=== PATIENT | female | born 1955 | race Two or more races ===

== ENCOUNTER 2022-10-18 07:29 | Emergency (ER) | payer MEDICARE, OTHER ==
[~2022-10-18] VITALS: Ht 160 cm; Wt 50.8 kg
--- NOTE | 2022-10-18 07:47 | NUR ---
TO ER BED 4, BIB DAUGHTER FOR WORSENING SHORTNESS OF BREATH SINCE YESTERDAY, AAOX3, BREATHING EVEN AND NON LABORED, CONNECTED TO MONITOR, AWAITING MD ORDERS
[2022-10-18] MEDS ORDERED: ACETAMINOPHEN ES 500 MG TABLET ONE (08:20)
[2022-10-18 08:22] LABS: BASOPHILS % (AUTO) 0.4 % (0.0-2.0); EOSINOPHILS % (AUTO) 0.5 % (0.0-6.0); LYMPHOCYTES % (AUTO) 60.9 % (20.0-44.0); MEAN CORPUSCULAR HGB CONC 33 g/dl (31.0-36.0); MEAN CORPUSCULAR VOLUME 113 fL (82-100); MONOCYTES # (AUTO) 0.2 K/uL (0.1-1.30); MONOCYTES % (AUTO) 12.6 % (2.0-12.0); NEUTROPHILS # (AUTO) 0.4 K/uL (1.8-8.9); NEUTROPHILS % (AUTO) 25.6 % (43.0-81.0)
[2022-10-18] MEDS ORDERED: IV NS 0.9% 1,000 ML BAG IV ONE (08:30)
[2022-10-18] MEDS ORDERED: ACETAMINOPHEN ES 500 MG TABLET PO ONE (08:30)
[2022-10-18 08:49] LABS: CALCIUM, SERUM 9.1 mg/dL (8.5-10.1); CARBON DIOXIDE 22 mmol/L (21-32); CHLORIDE 106 mmol/L (98-107); CREATININE 0.9 mg/dL (0.6-1.3); GLUCOSE 109 mg/dL (74-106); POTASSIUM 3.7 mmol/L (3.5-5.1); SODIUM SERUM 139 mmol/L (136-145); UREA NITROGEN, BLOOD 15 mg/dL (7-18)
[2022-10-18 09:08] LABS: HEMATOCRIT 13 % (33-45); HEMOGLOBIN 4.3 g/dL (11.5-14.8); PLATELET COUNT (AUTO) 8 K/uL (150-450); RED BLOOD CELL COUNT(AUTO) 1.13 MIL/uL (4.0-5.2); WHITE BLOOD COUNT (AUTO) 1.7 K/uL (4.3-11.0)
--- NOTE | 2022-10-18 09:47 | NUR ---
ROUND BONER AT BEDSIDE FOR BLOOD DRAW
--- NOTE | 2022-10-18 09:47 | NUR ---
COVID AND FLU SWABS DONE AND SENT TO LAB
[2022-10-18] MEDS ORDERED: LIDOCAINE VISCOUS 2% UD 15 ML UDC ONE (10:46)
[2022-10-18] MEDS ORDERED: LIDOCAINE VISCOUS 2% UD 15 ML UDC PO ONE (11:00)
[2022-10-18] MEDS ORDERED: LEVO25TA9 PO (11:03)
--- NOTE | 2022-10-18 11:06 | NUR ---
PATIENT REFUSED TO SIGN BLOOD TRANSFUSION CONSENT DESPITE THE RISKS OF HAVING LOW HGB OF 4.7, DR PROCTOR AWARE
--- NOTE | 2022-10-18 11:08 | NUR ---
DR PROCTOR AT BEDSIDE TALKING TO THE PATIENT AND FAMILY
--- NOTE | 2022-10-18 11:58 | NUR ---
Patient does not wish to proceed with medical care recommended by Dr. Howard. Patient given information related to possible complications, up to and including , which could occur as a result of leaving the hospital at this time. Patient verbalizes understanding of risks involved due to leaving against medical advice. Patient has signed AMA form.
[2022-10-18 11:59] VITALS: BP 118/66
--- NOTE | 2022-10-18 12:35 | NUR ---
LAB CALLED, COVID POSITIVE.
--- NOTE | 2022-10-18 12:38 | NUR ---
KULDIP SULLIVAN CONTACTED TO INFORM OF POSITIVE COVID ANTIGEN TEST.
[2022-10-18 12:53] LABS: LYMPHOCYTES % (MANUAL) 65 % (16-48); MONOCYTES % (MANUAL) 11 % (0-11.0); NEUTROPHILS % (MANUAL) 24 (42-76)
== END 2022-10-18 11:59 | disposition left against medical advice (07) ==
LOC: ER 07:45
DX: U07.1 COVID-19 (principal); D61.818 Other pancytopenia; Z53.29 Procedure and treatment not carried out because of patient's decision for other reasons
CPT/HCPCS: 99291; 96360; 87426; 93005; 71045; 85025; 80048; 36415; 84484; 86850; 83880; 85007; J7030; C9803

== ENCOUNTER 2022-10-18 15:20 | Emergency (ER) | payer MEDICARE, OTHER ==
[~2022-10-18 15:20] MED LIST: LEVO25TA9 PO
--- NOTE | 2022-10-18 16:13 | NUR ---
PATIENT AND FAMILY DECIDED NOT TO PROCEED WITH THE ADMISSION. PATIENT NOT TRIAGED.
== END 2022-10-18 16:16 | disposition left against medical advice (07) ==
LOC: ER 15:26
DX: Z53.21 Procedure and treatment not carried out due to patient leaving prior to being seen by health care provider (principal)

== ENCOUNTER 2022-10-22 15:45 | Inpatient (IN) | payer MEDICARE, OTHER ==
[~2022-10-22] VITALS: Ht 160 cm; Wt 50.8 kg
--- NOTE | 2022-10-22 16:20 | NUR ---
SENT HERE BY URGENT CARE FOR BLOOD TRANSFUSION, HERE 10/18/22 FOR PANCY-TOPENIA AND TESTED (+) TO COVID SAME DAY
--- NOTE | 2022-10-22 17:05 | NUR ---
IV LINE ESTABLISHED ON RAC #20, BLOOD DRAWN AND COLLECTED BY PHLEB AT BEDSIDE.
[2022-10-22] MEDS ORDERED: ALBU8.5H8 IH (17:28)
[2022-10-22] MEDS ORDERED: AZIT250T13 PO (17:28)
[2022-10-22 17:43] LABS: BASOPHILS % (AUTO) 0.3 % (0.0-2.0); EOSINOPHILS % (AUTO) 0.1 % (0.0-6.0); LYMPHOCYTES # (AUTO) 1.2 K/uL (0.8-4.8); LYMPHOCYTES % (AUTO) 68.5 % (20.0-44.0); MEAN CORPUSCULAR HGB CONC 34 g/dl (31.0-36.0); MEAN CORPUSCULAR VOLUME 112 fL (82-100); MONOCYTES # (AUTO) 0.1 K/uL (0.1-1.30); MONOCYTES % (AUTO) 6.6 % (2.0-12.0); NEUTROPHILS # (AUTO) 0.4 K/uL (1.8-8.9); NEUTROPHILS % (AUTO) 24.5 % (43.0-81.0)
[2022-10-22 17:53] LABS: CALCIUM, SERUM 8.7 mg/dL (8.5-10.1); CARBON DIOXIDE 24 mmol/L (21-32); CHLORIDE 107 mmol/L (98-107); CREATININE 0.9 mg/dL (0.6-1.3); GLUCOSE 104 mg/dL (74-106); POTASSIUM 4.1 mmol/L (3.5-5.1); SODIUM SERUM 139 mmol/L (136-145); UREA NITROGEN, BLOOD 15 mg/dL (7-18)
[2022-10-22 18:07] LABS: ALANINE AMINOTRANSFERASE 24 U/L (12-78); ALBUMIN 3.2 g/dL (3.4-5.0); ALKALINE PHOSPHATASE 88 U/L (46-116); ASPARTATE AMINOTRANSFERASE 28 U/L (15-37); BILIRUBIN,DIRECT 0.1 mg/dL (0.0-0.2); BILIRUBIN,TOTAL 0.3 mg/dL (0.2-1.0)
[2022-10-22 18:09] LABS: WHITE BLOOD COUNT (AUTO) 1.7 K/uL (4.3-11.0)
[2022-10-22 18:10] LABS: HEMATOCRIT 12 % (33-45); PLATELET COUNT (AUTO) 6 K/uL (150-450); RED BLOOD CELL COUNT(AUTO) 1.05 MIL/uL (4.0-5.2)
--- NOTE | 2022-10-22 18:10 | NUR ---
COVID SWAB COLLECTED AND SENT TO LAB
[2022-10-22 18:48] LABS: LYMPHOCYTES % (MANUAL) 69 % (16-48); MONOCYTES % (MANUAL) 6 % (0-11.0); NEUTROPHILS % (MANUAL) 25 (42-76)
--- NOTE | 2022-10-22 19:09 | NUR ---
PANEL ON-CALL PAGED
--- NOTE | 2022-10-22 19:44 | NUR ---
BLOOD TRANSFUSION CONSENT SIGNED BY PT AND PLACED IN THE CHART.
--- NOTE | 2022-10-22 19:51 | NUR ---
bed 120-1
--- NOTE | 2022-10-22 20:24 | NUR ---
REPORT GIVEN TO DESTINI BRYANT. PATIENT IS GOING TO 120-1
--- NOTE | 2022-10-22 20:35 | NUR ---
[facility] RN OPENING NOTE RECEIVED PT VIA ASHANTI FROM ER. PT IS A/OX4, PREFER [facility] BUT UNDERSTANDS THAI. ON RA, TOLERATING WELL, NO S/S OF DISTRESS. IV ACCESS RAC #20G, INTACT AND PATENT, TELE MONITOR READING SR HR 70'S.SKIN INTACT. PT WILL USE A BEDPAN. BLOOD TRANSFUSION READY, AND WILL BE PICKED UP SHORTLY.
[2022-10-22 20:40] VITALS: BP 133/68
--- NOTE | 2022-10-22 20:47 | NUR ---
TRANSFERRED PATIENT TO [facility] VIA ACLS
[2022-10-22] MEDS ORDERED: ALBUTEROL SULFATE 8 GM HFA.AER.AD IH PRN (21:00)
[2022-10-22] MEDS ORDERED: MAG HYDROX/AL HYDROX/SIMETH 30 ML UDC PO PRN (21:30)
[2022-10-22] MEDS ORDERED: ZOLPIDEM TARTRATE 5 MG TABLET PO PRN (21:30)
[2022-10-22] MEDS ORDERED: MAGNESIUM HYDROXIDE 30 ML UDC PO PRN (21:30)
[2022-10-22] MEDS ORDERED: Z GUARD REMEDY 4 OZ OINT TP PRN (21:30)
[2022-10-22] MEDS ORDERED: ONDANSETRON HCL/PF 4 MG/2 ML VIAL IVP PRN (21:30)
[2022-10-22 22:25] VITALS: BP 125/55
[2022-10-22 22:44] LABS: IRON, SERUM 37 ug/dl (50-175); TOTAL IRON BINDING CAPACITY 217 ug/dl (250-450)
[2022-10-22 22:45] VITALS: BP 130/56
[2022-10-22 23:00] VITALS: BP 127/61
[2022-10-22 23:15] VITALS: BP 119/71
[2022-10-22 23:45] VITALS: BP 103/84
[2022-10-23] VITALS (15 sets, daily range): BP systolic 115–145; BP diastolic 57–78
[2022-10-23] MEDS: ACETAMINOPHEN 325 MG TABLET PO PRN ×3 (01:57→20:48)
--- NOTE | 2022-10-23 04:59 | NUR ---
RN NOTE PT UNABLE TO DECIDE CODE STATUS. PT GETS VERY NERVOUS TALKING ABOUT IT. SPOKE WITH SON JENI I BELIEVE AND HE WOULD LIKE PT FULL CODE
[2022-10-23 06:35] LABS: LYMPHOCYTES # (AUTO) 0.8 K/uL (0.8-4.8); MEAN CORPUSCULAR HGB CONC 34 g/dl (31.0-36.0); MEAN CORPUSCULAR VOLUME 102 fL (82-100); MONOCYTES # (AUTO) 0.1 K/uL (0.1-1.30); MONOCYTES % (AUTO) 9.9 % (2.0-12.0); NEUTROPHILS # (AUTO) 0.4 K/uL (1.8-8.9); NEUTROPHILS % (AUTO) 30.1 % (43.0-81.0)
[2022-10-23 06:51] LABS: HEMATOCRIT 16 % (33-45); HEMOGLOBIN 5.5 g/dL (11.5-14.8); PLATELET COUNT (AUTO) 5 K/uL (150-450); WHITE BLOOD COUNT (AUTO) 1.3 K/uL (4.3-11.0)
[2022-10-23 06:52] LABS: CALCIUM, SERUM 8.1 mg/dL (8.5-10.1); CREATININE 0.7 mg/dL (0.6-1.3); MAGNESIUM 2.3 mg/dL (1.8-2.4); PHOSPHORUS 3.3 mg/dL (2.5-4.9); POTASSIUM 3.7 mmol/L (3.5-5.1)
--- NOTE | 2022-10-23 06:54 | NUR ---
RN NOTE CRITICAL LAB WBC:1.2, HGB: 5.5, HCT:16, PLT:5, ERIK NOTIFIED
--- NOTE | 2022-10-23 06:58 | NUR ---
[facility] RN CLOSING NOTE PT AWAKE AND ANXIOUS ABOUT HOSPITAL STAY. ON RA, TOLERATING WELL, NO S/S OF DISTRESS. IV ACCESS RAC #20G, INTACT AND PATENT, TELE MONITOR READING SR HR 70'S.CRITICAL LABS WILL BE ENDORSED. ALL SAFETY MEASURES IN PLACE, WILL ENDORSE TO MORNING SHIFT FOR KEN.
[2022-10-23 07:05] LABS: THYROID STIMULATING HORMONE 10.181 uIU/mL (0.358-3.74)
[2022-10-23] MEDS ORDERED: LEVOTHYROXINE SODIUM 25 MCG TABLET PO SCH (07:30)
[2022-10-23] MEDS ORDERED: PANTOPRAZOLE 40 MG VIAL IV SCH (09:00)
--- NOTE | 2022-10-23 10:55 | NUR ---
RN notes Patient's T: 99.9 F Administered Tylenol 650 mg PO PRN
--- NOTE | 2022-10-23 11:56 | NUR ---
RN Notes Started blood transfusion at this time 60 ml/hr on RUP midline, hemoglobin 5.5 , T 99.6 Fm P:-81, BP 123/66, RR 20, O2 -96% RA, Patient A/Ox4, refused pain, no sob noted.
--- NOTE | 2022-10-23 12:20 | NUR ---
RN notes Patient is stable, blood infusion increased 120 ml/hr, vital signs taken T97.6 F, BP: 115/57, RR:18, P: 69, O2 99% RA. No SOB, No pain noted. Will continue monitoring
--- NOTE | 2022-10-23 13:00 | NUR ---
RN NOTES patient is stable, vital signs: P 75, RR 18, BP 135/67, T 99.7, O2 98% RA, Patient is using bed side commode, continuing blood infusion at 120 ml/hr. will continue to monitor
--- NOTE | 2022-10-23 15:29 | NUR ---
RN notes Finished blood transfusion at 1529. patient is stable, using bedside commode, no sob, no pain noted. Vital signs BP: 132/61 P: 72, O2 99 % RA, T 99.3 F Will continue to monitor
[2022-10-23] MEDS ORDERED: TBO-FILGRASTIM 300 MCG/0.5 ML SYRINGE SQ SCH (17:00)
[2022-10-23] MEDS: CEFEPIME 2 GM in IV D5W 100 ML IV SCH (17:18)
--- NOTE | 2022-10-23 18:27 | NUR ---
rn notes started platelet infusion at this time 300ml on EVELIA line, patient a/o x4, t-99.3f, p-72, bp-132/61, p-72. patient refused blood withdraw, refused pain . no sob notes. patient wanted to be AMA after infusing platelet. son Spoken to the oncologist Dr Zhong about AMA, charge nurse aware of also notified hospitalist Dr chavez.
--- NOTE | 2022-10-23 18:50 | NUR ---
rn notes per hospitalist Dr Hill ok patient going AMA.
--- NOTE | 2022-10-23 19:00 | NUR ---
Rn notes increased platelets infusion rate 200ml/hr. patient stable, vital signs. t 99.2, p 79, bp 127/70, O2 99% RA, RR 18. patient has no sob, refused pain. endorsed oncoming nurse KEN
--- NOTE | 2022-10-23 20:00 | NUR ---
1999 Patient's son Josué called very upset asking why we are holding patient when family members are outside waiting for her. Explained to him that the nurse is getting patient ready to be released.
--- NOTE | 2022-10-23 20:00 | NUR ---
RN notes patient removed iv line at this time because wanted to go home signing AMA. patient shaking after removing platelet infusion, v/s taken bp 145/78, t-98.7, p-70, o2-93 room air, r-28. son name Josué aware of it , and get upset because wanted to take his mother home AMA , phone #- [phone]. spoke to the son and explained him about mothers condition and risks of leaving and informed to go to ER if her her condition get worsens. tubing sending to the lab for investigation, hospitalist dr Simeon notified about the incident.
--- NOTE | 2022-10-23 20:12 | NUR ---
2012 CLARA Perez made aware that patient and her son want to sign her AMA.
--- NOTE | 2022-10-23 20:20 | NUR ---
2020 Patient's niece Maya called and she said she is in the lobby but she cannot give patient a ride home because she has covid. Advised her to call patient's son Josué and let him know that she is not willing to give her a ride and to call hospital if he had more questions.
--- NOTE | 2022-10-23 20:30 | NUR ---
2030 Went to patient's room to assess patient. Patient with eyes closed but responds verbally to questions. Noted shaking. Asked how she's feeling and replied ok. Re checked temperature and obtained T103.8. Placed on 2 liters NC due to o2 saturation of 92%. Patient started removing rn cardiac and oxygen when re applied. Explained to patient that we need to monitor her while we are waiting for son to pick her up. Explained to patient the risks of her wanting to go AMA including possible but patient insisted she wants to go home because of covid. Still waiting for son to call us back.
--- NOTE | 2022-10-23 20:35 | NUR ---
2034 Patient's niece Maya called again and said son on his way from [facility] to pick patient up.
--- NOTE | 2022-10-23 20:35 | NUR ---
RN NOTES RECEIVED PATIENT ON BED, CONFUSED AND ANXIOUS, ON NASAL CANULA @ 2LPM SATING 92%. NO IV LINE AVAILABLE, DENIES PAIN. S/P PLATELETS TRANSFUSION, PER MORNING SHIFT NURSE, PATIENT REMOVED ALL IV LINE. PATIENT NOTED WITH TEMP- 103.8 FAHRENHEIT, COOLING MEASURE PROVIDED, ACETAMINOPHEN 650MG GIVEN. ALSO PATIENT VOMIT X1, UNABLE TO GIVE ZOFRAN 4MG IVP, PATIENT HAS NO IV LINE AVAILABLE, PATIENT PULLED OUT ALL HER IV LINE, STATING THAT SHE'S NOT NEED IT, SHE WILL GOING HOME TODAY. CALLED SON LAURIE AGAIN , IF HE WILL ABLE PICKED UP THE PATIENT, UNABLE TO REACH AT THIS TIME, LEFT MESSAGE THRU VOICEMAIL.
--- NOTE | 2022-10-23 22:20 | NUR ---
2220 Spoke with patient's son Josué and he said patient decided to stay in the hospital. Updated him on patient's condition with all of his questions answered. Son verbalized gratitude for care of patient.
--- NOTE | 2022-10-23 22:25 | NUR ---
2225 CLARA Perez made aware that patient decided to stay in the hospital.
[2022-10-23 22:38] LABS: LYMPHOCYTES % (MANUAL) 54 % (16-48); NEUTROPHILS % (MANUAL) 46 (42-76)
--- NOTE | 2022-10-23 22:45 | NUR ---
RN NOTES PATIENT REFUSED BLOOD WORK FOR TRANSFUSION REACTION WORK-UP, ALSO REFUSED TO INSERT NEW IV LINE, EXPLAINED RISKS AND BENEFITS OFFER THREE TIMES, PATIENT STILL REFUSED. CLARA VALENCIA MADE AWARE.
[2022-10-24] VITALS: BP 101/55
[2022-10-24] MEDS: CEFEPIME 2 GM in IV D5W 100 ML IV SCH (01:00)
--- NOTE | 2022-10-24 01:00 | NUR ---
RN NOTES UNABLE TO ADMINISTER CEFEPIME 2G IV, PATIENT NO IV LINE, TRIED TO INSERT A NEW ONE, PATIENT REFUSED EXPLAINED RISKS AND BENEFITS, OFFER 3X STILL REFUSED. CLARA VALENCIA MADE AWARE.
--- NOTE | 2022-10-24 03:45 | NUR ---
RN NOTES PATIENT SPOKE TO RN THAT SHE WILL GO HOME TODAY AT 0400 HER SON WILL PICK HER UP. RN SPOKE TO PATIENT SON, LAURIE, PATIENT IS INSISTED THE SHE WANNA GO HOME. LAURIE CONFIRMED THE HE WILL PICKED UP HER MOTHER. PATIENT WILL BE DISCHARGE AGAINST MEDICAL ADVICE, EXPLAINED RISKS AND BENEFITS, STILL STATED THAT SHE IS GOING HOME. NOTIFIED HARDWARE ENGINEER AZEB VALENCIA.
[2022-10-24 04:00] VITALS: BP 101/55
--- NOTE | 2022-10-24 04:00 | NUR ---
RN NOTED LAURIE CALLED AGAIN, THAT HIS NEPHEW CLAUDE WILL NEUROLOGY MANAGER THE PATIENT.
--- NOTE | 2022-10-24 04:15 | NUR ---
RN NOTES WHEELED PATIENT TO THE LOBBY, CLAUDE PICKED UP THE PATIENT VIA PRIVATE CAR, PATIENT LEFT THE HOSPITAL IN STABLE CONDITION. V/S TAKEN AND RECORDED BP-97/60, PULSE- 73, TEMP.- 98.6, O2SAT- 94%.
== END 2022-10-24 05:15 | disposition left against medical advice (07) | DRG 808 ==
LOC: ER 15:47 → MEDSG1 19:54 → TELE-TD 21:43
PROVIDERS: ADMIT Nurse Practitioner Acute Care; ATTEND Internal Medicine
PROC: 30233N1 Transfusion of Nonautologous Red Blood Cells into Peripheral Vein, Percutaneous Approach (ICD-10-PCS; principal; 2022-10-22)
DX: D61.818 Other pancytopenia (principal); U07.1 COVID-19; D69.3 Immune thrombocytopenic purpura; D53.9 Nutritional anemia, unspecified; Z79.51 Long term (current) use of inhaled steroids; Z79.890 Hormone replacement therapy; D69.6 Thrombocytopenia, unspecified; E03.9 Hypothyroidism, unspecified; D70.9 Neutropenia, unspecified; R50.81 Fever presenting with conditions classified elsewhere
CPT/HCPCS: 36415; 71045-TC; 80048-TC; 80061-TC; 80076-TC; 82607-TC; 83010; 83540-TC; 83615-TC; 83735-TC; 84100-TC; 84443-TC; 84484-TC; 85025-TC; 85045-TC; 85378-TC; 85730-TC; 86140-TC; 86850-TC; 87081-TC; C9113; C9803; G0378; J0692; J1442; J7050; J7060; P9016; P9034